=== PATIENT | female | born 1970 | race American Indian/Alaskan Native ===

== ENCOUNTER 2018-03-08 17:28 | Emergency (ER) | payer BC ==
[2018-03-08] MEDS ORDERED: DELTASONE PO ONE (19:22)
[2018-03-08] MEDS ORDERED: MOTRIN PO ONE (19:22)
--- NOTE | 2018-03-08 19:22 | Emergency Department Report ---
Minor Respiratory - HPI Chief Complaint: High BP Stated Complaint: HIGH BP Time Seen by Provider: 03/08/18 19:06 Duration: 1 week Pain Location: Facial Severity: mild (4/10) Minor Respiratory: Yes Rhinorrhea (nasal congestion and sinus pain), Yes Able to Tolerate Fluids, Yes Cough (dry cough), No Sore Throat, No Ear Pain, No Sick Contacts, No Hemoptysis, No Chest Pain, No Shortness of Breath, No Fever Other History: This is a 47-year-old female here report that she has a sinus infection. She says she has really bad allergies and she started having an weakness, head spinning and nausea onset 2 days ago but prior to that a week ago she started having nasal congestion and runny nose. She says she pulled her tooth and it causes her blood pressure to be elevated but her blood pressure is 150/87. She is having pain around her sinuses at 4 out of 10 with facial pressor. Denies any headache. Denies any vomiting or diarrhea. Denies any shortness of breath or chest pain. Positive cough and. She says she took kpsf-scj-cjoelck sinus medication but it's not helping. No alleviating or exacerbating factors. ED Review of Systems ROS: Stated complaint: HIGH BP Other details as noted in HPI Constitutional: denies: chills, fever Eyes: denies: eye pain, eye discharge, vision change ENT: congestion. denies: ear pain, throat pain, dental pain, hearing loss, epistaxis Respiratory: cough. denies: orthopnea, shortness of breath, SOB with exertion, SOB at rest, stridor, wheezing Cardiovascular: denies: chest pain, palpitations, edema, syncope Gastrointestinal: nausea. denies: abdominal pain, vomiting, diarrhea, constipation, hematemesis, hematochezia Genitourinary: denies: urgency, dysuria, frequency, hematuria, discharge Musculoskeletal: denies: back pain, joint swelling, arthralgia, myalgia Skin: denies: rash, lesions, pruritus Neurological: vertigo. denies: headache, weakness, numbness, paresthesias, confusion, abnormal gait ED Past Medical Hx - Past Medical History Previous Medical History?: Yes Hx Hypertension: Yes Hx Psychiatric Treatment: Yes (depression) - Surgical History Past Surgical History?: Yes Additional Surgical History: Hyst - Family History Family history: hypertension - Social History Smoking Status: Never Smoker Substance Use Type: None - Medications Home Medications: Home Medications Medication Instructions Recorded Confirmed Last Taken Type Amoxicillin/K Clav Tab [Augmentin 1 tab PO Q12HR 10 Days #20 tab 03/08/18 Unknown Rx 875 mg] Cetirizine HCl [ZyrTEC] 10 mg PO QDAY 14 Days #14 capsule 03/08/18 Unknown Rx Fluticasone [Flonase] 1 spray NS QDAY 14 Days #1 bottle 03/08/18 Unknown Rx Minor Respiratory Exam - Exam General: Vital signs noted. No distress. Alert and acting appropriately. This is a 47-year-old female well-nourished well-developed in no acute distress. HEENT: Yes Moist Mucous Membranes, Yes Rhinorrhea (nasal congestion, erythema and clear drainage), Yes Frontal Tenderness, Yes Maxillary Tenderness, No Pharyngeal Erythema, No Pharyngeal Exudates, No Conjuctival Injection Ear: Neither TM Bulge (bilateral TM congested), Neither TM Erythema, Neither EAC Pain, Neither EAC Discharge Neck: Yes Supple (no C-spine tenderness, full range of motion), No Adenopathy Lungs: Yes Good Air Exchange (CTAB), No Wheezes, No Ronchi, No Stridor, No Cough , No Labored Respirations, No Retractions Heart: Yes Regular (S1, S2. Regular rate and rhythm) Abdomen: Yes Normal Bowel Sounds (in all quadrants), No Tenderness (nontender to palpate in all quadrants), No Peritoneal Signs Skin: No Rash, No Edema Neurologic: Alert and oriented 3, GCS of 15, speech is clear and fluid. Gait is normal. Normal reflexes and no motor or sensory deficit. Musculoskeletal: Extremities:NO CCE +2 pulses all extremities and no neurovascular compromise ED Course Vital Signs 03/08/18 17:33 Temperature 99.3 F Pulse Rate 78 Respiratory 18 Rate Blood Pressure 150/87 O2 Sat by Pulse 100 Oximetry - Reevaluation(s) Reevaluation #1: 03/08/18 20:17 Patient received prednisone 60 mg by mouth and ibuprofen 800 mg by mouth in emergency room. She says she is feeling better. ED Medical Decision Making - Medical Decision Making ED course This is a 47-year-old female here reporting that she thinks she has a sinus infection and she is here to be treated. I examined patient and she is in stable condition. Pain is better with prednisone 60 mg by mouth. Motrin 800 mg by mouth for pain. I discussed with patient her diagnosis and she voiced understanding. A/P 1: Acute sinusitis-patient given Deltasone 60 mg by mouth and emergency room and was sent home antibiotics and steroids 2: Upper respiratory infection with cough and congestion - patient will be discharged home on Zyrtec and Flonase and instructed on saline nasal wash. 3: Facial pain -resolved with Motrin 800 mg 1 dose and emergency room Prescription for Augmentin, Flonase and Zyrtec. She is educated on diagnosis, medication,and need to follow-up.Referral given for primary care Patient discharged home in stable condition and pain is controlled. Vital signs are stable and is afebrile. Patient to follow-up with primary care physician in 2-3 days. . I also instructed him that if her symptoms worsen to return to the emergency room YONATHAN. She voiced understanding and discharge instruction and discharged home from ED in stable condition Critical care attestation.: If time is entered above; I have spent that time in minutes in the direct care of this critically ill patient, excluding procedure time. ED Disposition Clinical Impression: Upper respiratory infection with cough and congestion Acute sinusitis Qualifiers: Sinusitis location: unspecified location Recurrence: not specified as recurrent Qualified Code(s): J01.90 - Acute sinusitis, unspecified Disposition: DC- TO HOME OR SELFCARE Is pt being admited?: No Does the pt Need Aspirin: No Condition: Stable Instructions: Sinusitis (ED), Upper Respiratory Infection (ED) Additional Instructions: Please increase her fluid intake Flush nostrils with saline nasal spray take antibiotic as prescribed F/U with primary care physician as instructed Prescriptions: Amoxicillin/K Clav Tab [Augmentin 875 mg] 1 tab PO Q12HR 10 Days #20 tab Cetirizine HCl [ZyrTEC] 10 mg PO QDAY 14 Days #14 capsule Fluticasone [Flonase] 1 spray NS QDAY 14 Days #1 bottle Referrals: [facility] [Outside] - 2-3 Days PRIMARY CARE, [Primary Care Provider] - 2-3 Days Forms: Work/School Release Form(ED)
[2018-03-08 20:28] VITALS: BP 156/78
== END 2018-03-08 20:28 | disposition home or self-care (01) ==
LOC: ED 17:28
DX: J06.9 Acute upper respiratory infection, unspecified (principal); R05 Cough; J01.90 Acute sinusitis, unspecified; I10 Essential (primary) hypertension; F32.9 Major depressive disorder, single episode, unspecified
CPT/HCPCS: 99282; J7512

== ENCOUNTER 2019-06-29 08:57 | Observation (INO) | payer BC ==
[2019-06-29] MEDS ORDERED: ASPIRIN 325 MG TAB PO ONE (09:16)
--- NOTE | 2019-06-29 09:48 | XRay Report ---
CHEST 2 VIEWS INDICATION: Chest Pain. COMPARISON: None. FINDINGS: Support devices: None. Heart: Within normal limits. Pulmonary vasculature: Normal. Lungs/pleura: Normally expanded and clear lungs. No pleural effusion. No pneumothorax. Additional findings: None. IMPRESSION: 1. No acute cardiopulmonary process. Signer Name: Javi Russo MD Signed: 06/29/2019 9:44 AM Workstation Name: [id number]
[2019-06-29] MEDS ORDERED: ACETAMINOPHEN 325 MG TAB PO ONE (10:16)
[2019-06-29] MEDS ORDERED: FAMOTIDINE 20 MG TAB PO ONE (10:16)
[2019-06-29] MEDS ORDERED: SUCRALFATE 1 GM/10 ML ORAL LIQD PO ONE (10:16)
--- NOTE | 2019-06-29 10:17 | Emergency Department Report ---
ED Chest Pain HPI - General Chief Complaint: Chest Pain Stated Complaint: CHEST PAIN/NAUSEA/HBP Time Seen by Provider: 06/29/19 09:48 Source: patient, RN notes reviewed Mode of arrival: Ambulatory Limitations: No Limitations - History of Present Illness Initial Comments: During history and physical, I am chaperoned by nurse ALLEN DORMAN this is a 48-year-old female. This patient is not known to this provider previously. Her primary care doctor is in [place]. Her past medical history includes hypertension, GERD, asthma, depression, anxiety. The patient denies DVT, pulmonary ambles risk factors. No recent aspi rin consumption, and also endorses distant history of hysterectomy The patient presents to the ER with a complaint of resolved bilateral anterior quadriceps swelling, resolved bilateral upper extremity swelling, bilateral paracervical reproducible neck pain, chest wall pain. The swelling has been present intermittently over the past 3 days. It is painless and now resolved. She endorses chest wall pain, and simultaneous paracervical neck pain. She denies vomiting. She denies diaphoresis. She endorses chronic shortness of breath, and feels like "I have a sinus infection." Patient also endorses that she believes that she snores at night, and that she feels like sleepers occasionally not restful. She also endorses anxiety. Her chest discomfort has been present for over 24 hours. To me, she indicates it does not radiate anywhere. MD Complaint: chest pain, other -: Gradual, hour(s), days(s) Onset: other Pain Location: other Pain Radiation: other Severity scale (0 -10): 5 Quality: aching Consistency: intermittent Improves With: rest Worsens With: palpation Aspirin use within the Past 7 Days: (0) No - Related Data Previous Rx's Medication Instructions Recorded Last Taken Type Amoxicillin/K Clav Tab [Augmentin 1 tab PO Q12HR 10 Days #20 tab 03/08/18 Unknown Rx 875 mg] Cetirizine HCl [ZyrTEC] 10 mg PO QDAY 14 Days #14 capsule 03/08/18 Unknown Rx Fluticasone [Flonase] 1 spray NS QDAY 14 Days #1 bottle 03/08/18 Unknown Rx Acetaminophen [Tylenol] 325 mg PO Q4HR PRN #30 capsule 06/29/19 Unknown Rx Aspirin [Adult Aspirin] 81 mg PO QDAY #30 tablet. 06/29/19 Unknown Rx Famotidine [Pepcid] 20 mg PO BID #60 tablet 06/29/19 Unknown Rx Ondansetron [Zofran Odt] 4 mg PO Q8HR PRN #20 tab.rapdis 06/29/19 Unknown Rx Allergies Allergy/AdvReac Type Severity Reaction Status Date / Time No Known Allergies Allergy Verified 06/29/19 10:08 Heart Score - HEART Score History: Moderately suspicious EKG: Non-specific Age: 45-65 Risk factors: 1-2 risk factors Troponin: < normal limit HEART Score: 4 - Critical Actions Critical Actions: 0-3 pts:0.9-1.7%risk of adverse cardiac event.Candidate for discharge ED Review of Systems ROS: Stated complaint: CHEST PAIN/NAUSEA/HBP Other details as noted in HPI Constitutional: malaise. denies: fever Eyes: denies: eye discharge ENT: congestion Respiratory: shortness of breath Cardiovascular: chest pain Gastrointestinal: denies: vomiting Genitourinary: denies: dysuria Musculoskeletal: arthralgia, myalgia Skin: denies: lesions Neurological: weakness Psychiatric: anxiety ED Past Medical Hx - Past Medical History Previous Medical History?: Yes Hx Hypertension: Yes Hx Psychiatric Treatment: Yes (depression) - Surgical History Past Surgical History?: Yes Additional Surgical History: Hysterectomy - Social History Smoking Status: Never Smoker - Medications Home Medications: Home Medications Medication Instructions Recorded Confirmed Last Taken Type Amoxicillin/K Clav Tab [Augmentin 1 tab PO Q12HR 10 Days #20 tab 03/08/18 Unknown Rx 875 mg] Cetirizine HCl [ZyrTEC] 10 mg PO QDAY 14 Days #14 capsule 03/08/18 Unknown Rx Fluticasone [Flonase] 1 spray NS QDAY 14 Days #1 bottle 03/08/18 Unknown Rx Acetaminophen [Tylenol] 325 mg PO Q4HR PRN #30 capsule 06/29/19 Unknown Rx Aspirin [Adult Aspirin] 81 mg PO QDAY #30 tablet. 06/29/19 Unknown Rx Famotidine [Pepcid] 20 mg PO BID #60 tablet 06/29/19 Unknown Rx Ondansetron [Zofran Odt] 4 mg PO Q8HR PRN #20 tab.rapdis 06/29/19 Unknown Rx ED Physical Exam - General Limitations: No Limitations General appearance: alert, in no apparent distress - Head Head exam: Present: atraumatic, normocephalic - Eye Eye exam: Present: normal appearance, EOMI. Absent: nystagmus - ENT ENT exam: Present: normal exam, normal orophraynx, mucous membranes moist, normal external ear exam - Neck Neck exam: Present: normal inspection, tenderness (reproducible paracervical neck pain. There is no midline spinal tenderness), full ROM - Respiratory Respiratory exam: Present: normal lung sounds bilaterally, chest wall tenderness. Absent: respiratory distress - Cardiovascular Cardiovascular Exam: Present: regular rate, normal rhythm, normal heart sounds. Absent: bradycardia, tachycardia, irregular rhythm, systolic murmur, diastolic murmur, rubs, gallop - GI/Abdominal GI/Abdominal exam: Present: soft, normal bowel sounds. Absent: distended, tenderness, guarding, rebound, rigid, pulsatile mass - Extremities Exam Extremities exam: Present: normal inspection (chaperoned by ALLEN DORMAN), full ROM, other (2+ pulses noted in the bilateral upper, lower extremities. There is no long bone tenderness. Musculoskeletal compartments are soft. The pelvis is stable.). Absent: pedal edema, joint swelling, calf tenderness - Back Exam Back exam: Present: normal inspection, full ROM, paraspinal tenderness. Absent: CVA tenderness (R), muscle spasm, rash noted - Neurological Exam Neurological exam: Present: alert, other (there is no facial droop. The tongue is midline. Extraocular movements are intact bilaterally. Patient speaking in full complete sentences. Shoulder shrug is intact bilaterally. Hearing is grossly intact bilaterally. Visual acuity intact to finger counting and color p erception at a close distance. 5/5 strength 4 extremities. Sensation intact to light touch in 4 extremities.) - Psychiatric Psychiatric exam: Present: anxious - Skin Skin exam: Present: warm, dry, intact, normal color. Absent: rash ED Course Vital Signs 06/29/19 06/29/19 06/29/19 09:01 09:51 09:52 Temperature 98.3 F 98.4 F Pulse Rate 61 189 H 63 Respiratory 20 16 21 Rate Blood Pressure 161/92 Blood Pressure 174/93 [Right] O2 Sat by Pulse 100 100 99 Oximetry 06/29/19 06/29/19 06/29/19 10:00 10:16 10:30 Temperature Pulse Rate 62 60 Respiratory 15 17 16 Rate Blood Pressure Blood Pressure [Right] O2 Sat by Pulse 99 100 100 Oximetry 06/29/19 06/29/19 06/29/19 10:46 11:00 11:16 Temperature Pulse Rate 65 61 Respiratory 14 15 18 Rate Blood Pressure Blood Pressure [Right] O2 Sat by Pulse 100 100 99 Oximetry 06/29/19 11:56 Temperature Pulse Rate 64 Respiratory 13 Rate Blood Pressure Blood Pressure 149/94 [Right] O2 Sat by Pulse Oximetry - Reevaluation(s) Reevaluation #1: 06/29/19 11:24 Differential diagnosis, including but not limited to: Renal insufficiency, hepatic insufficiency, dependent edema, febrile myalgia, musculoskeletal pain, GERD, gastritis, costochondritis, acute coronary syndrome Assessment and plan: 48-year-old female with multiple complaints, including resolved swelling on upper and lower extremities, paraspinal reproducible neck pain, and chest pain. Abnormal EKG reviewed and appreciated, however, given history and total data analysis, patient appears to be low risk by the heart score for major adverse cardiac event. She is not tachycardic, she is not hypoxic, she is not tachypneic, she is low risk by well's criteria for pulmonary embolism. Her exam is not consistent with cellulitis, or compartment syndrome. She appears to be quite comfortable at this time. Plan is to treat symptoms, obtain EKG 2, troponin 2. This hospital and institution has a protocol in place whereby patients who are at low risk for major adverse cardiac event may obtain expedited outpatient cardiology follow-up to complete her cardiac risk stratification. Patient may also have obstructive sleep apnea, she'll need to follow-up with a chief underwriter or sleep specialist for this. Laboratory studies at this point in time not consistent with renal insufficiency, hepatic insufficiency, or myositis. Reevaluation #2: 06/29/19 12:06 Change in plans. Repeat EKG subtly different when compared to prior. No active chest pain at this time, however, patient endorsed to myself and nursing tenet while walking, she had substernal chest discomfort. Therefore, heart score changes, she is now moderate risk for major adverse cardiac event, we'll recommend admission to the hospital for cardiac recertification. Discussed this with patient who verbalizes understanding, and is amenable to hospitalization. Reevaluation #3: 06/29/19 12:24 Discussed with Hospital physician, Dr. Stephanie Isidro, who accepts to his service for acs risk stratification RENNY score - Renny Score Age > 65: (0) No Aspirin use within the Past 7 Days: (0) No 3 or more CAD Risk Factors: (0) No 2 or more Angina events in past 24 hrs: (0) No Known CAD with more than 50% Stenosis: (0) No Elevated Cardiac Markers: (0) No ST Deviation Greater than 0.5mm: (0) No RENNY Score: 0 ED Medical Decision Making - Lab Data Result diagrams: 06/29/19 09:52 06/29/19 09:52 Vital Signs 06/29/19 06/29/19 06/29/19 09:01 09:51 09:52 Temperature 98.3 F 98.4 F Pulse Rate 61 189 H 63 Respiratory 20 16 21 Rate Blood Pressure 161/92 Blood Pressure 174/93 [Right] O2 Sat by Pulse 100 100 99 Oximetry 06/29/19 06/29/19 06/29/19 10:00 10:16 10:30 Temperature Pulse Rate 62 60 Respiratory 15 17 16 Rate Blood Pressure Blood Pressure [Right] O2 Sat by Pulse 99 100 100 Oximetry Lab Results 06/29/19 06/29/19 06/29/19 Range/Units 09:52 09:52 09:52 WBC 5.3 (4.5-11.0) K/mm3 RBC 4.56 (3.65-5.03) M/mm3 Hgb 12.8 (10.1-14.3) gm/dl Hct 38.6 (30.3-42.9) % MCV 85 (79-97) fl MCH 28 (28-32) pg MCHC 33 (30-34) % RDW 15.8 H (13.2-15.2) % Plt Count 243 (140-440) K/mm3 Lynn % (Auto) [employer]umber Car[employer] Operator Sodium 142 (137-145) mmol/L Potassium 3.3 L (3.6-5.0) mmol/L Chloride 99.7 (98-107) mmol/L Carbon Dioxide 24 (22-30) mmol/L Anion Gap 22 mmol/L BUN 11 (7-17) mg/dL Creatinine 0.6 L (0.7-1.2) mg/dL Estimated GFR > 60 ml/min BUN/Creatinine Ratio 18 % Glucose 116 H (65-100) mg/dL Calcium 8.7 (8.4-10.2) mg/dL Magnesium 1.80 (1.7-2.3) mg/dL Total Bilirubin < 0.20 (0.1-1.2) mg/dL Direct Bilirubin < 0.2 (0-0.2) mg/dL Indirect Bilirubin 0.0 mg/dL AST 20 (5-40) units/L ALT 15 (7-56) units/L Alkaline Phosphatase 107 (35-129) units/L Total Creatine Kinase 300 H (30-135) units/L Troponin T < 0.010 (0.00-0.029) ng/mL Total Protein 7.5 (6.3-8.2) g/dL Albumin 4.3 (3.9-5) g/dL Albumin/Globulin Ratio 1.3 % - EKG Data -: EKG Interpreted by Ct EKG shows normal: sinus rhythm Rate: normal - EKG Data When compared to previous EKG there are: previous EKG unavailable 06/29/19 11:26 There is no prior EKG available for comparison. This is a sinus rhythm, 62 bpm, QTC 469 ms, poor R wave progression, there is low voltage, the EKG is abnormal, the EKG is unchanged from prior, the EKG is not consistent with ST elevation myocardial infarction. - Radiology Data Radiology results: report reviewed, image reviewed Referring Physician: ED DOC Patient Name: JESSICA VELÁZQUEZ Date of : 1970 Sex: Female Report Date: 2019-06-29 Report Status: Finalized Findings [facility] [address] [place] [address] XRay Report Signed Patient: JESSICA VELÁZQUEZ MR#: [id number] [birth year] : 1970 Acct:[id number] Age/Sex: 48 / F ADM Date: 06/29/19 Loc: ED Attending Dr: Ordering Physician: ROBE JI MD Date of Service: 06/29/19 Procedure(s): XR chest routine 2V Accession Number(s): [id number] cc: ROBE JI MD Fluoro Time In Minutes: CHEST 2 VIEWS INDICATION: Chest Pain. COMPARISON: None. FINDINGS: Support devices: None. Heart: Within normal limits. Pulmonary vasculature: Normal. Lungs/pleura: Normally expanded and clear lungs. No pleural effusion. No pneumothorax. Additional findings: None. IMPRESSION: 1. No acute cardiopulmonary process. Signer Name: Sahara Becker MD Signed: 06/29/2019 9:44 AM Workstation Name: [id number] Transcribed By: REF Dictated By: SAHARA BECKER MD Electronically Authenticated By: SAHARA BECKER MD Signed Date/Time: 06/29/19 0917 Critical care attestation.: If time is entered above; I have spent that time in minutes in the direct care of this critically ill patient, excluding procedure time. ED Disposition Clinical Impression: Acute chest pain, Abnormal EKG Disposition: OP ADMIT IP TO THIS HOSP Is pt being admited?: Yes Does the pt Need Aspirin: Yes Condition: Stable Instructions: Chest Pain (ED) Additional Instructions: Take the prescribed medications as needed and directed. Recommend follow-up with a planer tailer within the next 2-3 days. Please contact any of the listed cardiology practices, and state that he was seen here in this emergency room for chest pain symptoms, and they should be able to accommodate the patient with a close outpatient appointment for probable stress test and/or cardiology evaluation. Recommend weight loss, physical activities as tolerated, modification of diet to avoid consumption of carbohydrates and sugars, and patient should consume plenty of fiber, vegetables, and lean protein. Recommend follow-up with an outpatient sleep specialist, such as Dr. Portillo, to evaluate for possible sleep apnea. Return to the emergency room right away with new, worsened or different symptoms not present on the initial emergency room e valuation. For the time being, avoid consumption of Motrin, ibuprofen, Naprosyn, Aleve, alcohol, heavy and spicy foods. Prescriptions: Aspirin [Adult Aspirin] 81 mg PO QDAY #30 tablet. Famotidine [Pepcid] 20 mg PO BID #60 tablet Acetaminophen [Tylenol] 325 mg PO Q4HR PRN #30 capsule PRN Reason: Pain , Severe (7-10) Ondansetron [Zofran Odt] 4 mg PO Q8HR PRN #20 tab.rapdis PRN Reason: Nausea Referrals: [facility] [Provider Group] - 3-5 Days [facility] [Provider Group] - 3-5 Days JUAN LUIS PORTILLO MD [Staff Physician] - 3-5 Days
[2019-06-29 10:43] LABS: Hematocrit 38.6 % (30.3-42.9); Hemoglobin 12.8 gm/dl (10.1-14.3); Mean Corpuscular HGB Conc 33 % (30-34); Mean Corpuscular Volume 85 fl (79-97); Platelet Count 243 K/mm3 (140-440); Red Blood Count 4.56 M/mm3 (3.65-5.03); Red Cell Distribution Width 15.8 % (13.2-15.2)
[2019-06-29 10:46] LABS: BUN/Creatinine Ratio 18; Blood Urea Nitrogen 11 mg/dL (7-17); Calcium 8.7 mg/dL (8.4-10.2); Hemolysis Index 24
[2019-06-29] MEDS ORDERED: POTASSIUM CHLORIDE ER 20 MEQ TAB PO ONE ×2 (10:47→18:02)
[2019-06-29 11:02] LABS: Alanine Aminotransferase 15 units/L (7-56); Albumin 4.3 g/dL (3.9-5)
[2019-06-29 11:14] LABS: Bilirubin,Direct < 0.2 mg/dL (0-0.2)
[2019-06-29] MEDS ORDERED: ONDANSETRON 2 MG/2.5 ML ORAL LIQD PO ONE (11:16)
[2019-06-29] MEDS ORDERED: ASPIRIN 81 MG TAB CHEW PO ONE (12:08)
[2019-06-29 12:53] LABS: Total Cells Counted 100
[2019-06-29 12:54] LABS: Hypochromasia Few
[2019-06-29 12:55] LABS: Anisocytosis Few; Ovalocytes Rare; Platelet Estimate Consistent w Auto
[2019-06-29] MEDS ORDERED: ASPIRIN 325 MG TAB ONE (13:19)
[2019-06-29] MEDS ORDERED: ASPIRIN 81 MG TAB CHEW ONE (13:24)
--- NOTE | 2019-06-29 14:44 | History and Physical Report ---
History of Present Illness Date of examination: 06/29/19 Date of admission: 06/29/19 12:24 Chief complaint: Chest pain for 3 days --intermittent in nature History of present illness: 48-year-old -[place] female with history of gastroesophageal reflux disease comes in for retrosternal chest pain for last 2-3 days. Chest pain is intermittent in nature, radiating to the back. Associated with nausea for last 3 days. No vomiting.. Chest pain is about 5 on a scale of 1-10. No diaphoresis. No exacerbating or relieving factors. No shortness of breath. P atient also complains of neck pain. Chronic shortness of breath secondary to her obesity. No fever or chills. Past Medical History Previous Medical History?: Yes Hypertension: Yes Psychiatric Treatment: Yes (depression) JOELLE Surgical History Past Surgical History?: Yes Additional Surgical History: Hysterectomy Social History Smoking Status: Never Smoker Family history Htn Medications Home Medications: Home Medications Medication Instructions Recorded Confirmed Last Taken Type Amoxicillin/K Clav Tab [Augmentin 1 tab PO Q12HR 10 Days #20 tab 03/08/18 Unknown Rx 875 mg] Cetirizine HCl [ZyrTEC] 10 mg PO QDAY 14 Days #14 capsule 03/08/18 Unknown Rx Fluticasone [Flonase] 1 spray NS QDAY 14 Days #1 bottle 03/08/18 Unknown Rx Acetaminophen [Tylenol] 325 mg PO Q4HR PRN #30 capsule 06/29/19 Unknown Rx Aspirin [Adult Aspirin] 81 mg PO QDAY #30 tablet.dr 06/29/19 Unknown Rx Famotidine [Pepcid] 20 mg PO BID #60 tablet 06/29/19 Unknown Rx Ondansetron [Zofran Odt] 4 mg PO Q8HR PRN #20 tab.rapdis 06/29/19 Unknown Rx Review of Systems ROS: Stated complaint: CHEST PAIN/NAUSEA/HBP Other details as noted in HPI Constitutional: malaise. denies: fever Eyes: denies: eye discharge ENT: congestion Respiratory: shortness of breath Cardiovascular: chest pain Gastrointestinal: denies: vomiting Genitourinary: denies: dysuria Musculoskeletal: arthralgia, myalgia Skin: denies: lesions Neurological: weakness Psychiatric: anxiety Medications and Allergies Allergies Allergy/AdvReac Type Severity Reaction Status Date / Time No Known Allergies Allergy Verified 06/29/19 10:08 Home Medications Medication Instructions Recorded Confirmed Last Taken Type Acetaminophen [Tylenol] 325 mg PO Q4HR PRN #30 capsule 06/29/19 Unknown Rx Amlodipine Besylate/Benazepril 1 each PO QDAY 06/29/19 06/29/19 Unknown History [Amlodipine-Benazepril 10-40 mg] Aspirin [Adult Aspirin] 81 mg PO QDAY #30 tablet.dr 06/29/19 Unknown Rx Famotidine [Pepcid] 20 mg PO BID #60 tablet 06/29/19 Unknown Rx Gabapentin [Neurontin] 300 mg PO TID 06/29/19 06/29/19 Unknown History Meloxicam [Mobic] 15 mg PO QDAY 06/29/19 06/29/19 Unknown History Omeprazole 40 mg PO Q12H 06/29/19 06/29/19 Unknown History Ondansetron [Zofran Odt] 4 mg PO Q8HR PRN #20 tab.rapdis 06/29/19 Unknown Rx PARoxetine HCl [PARoxetine] 40 mg PO QDAY 06/29/19 06/29/19 Unknown History busPIRone [Buspar] 10 mg PO Q12H 06/29/19 06/29/19 Unknown History tiZANidine [Zanaflex 4mg TAB] 4 mg PO Q6H PRN 06/29/19 06/29/19 Unknown History valACYclovir [Valtrex] 500 mg PO QDAY 06/29/19 06/29/19 Unknown History Exam - Constitutional Vitals: Temp Pulse Resp BP Pulse Ox 98.4 F 61 16 167/89 99 06/29/19 09:52 06/29/19 13:16 06/29/19 13:16 06/29/19 13:16 06/29/19 11:16 General appearance: Present: no acute distress, well-nourished - EENT Eyes: Present: PERRL ENT: hearing intact, clear oral mucosa - Neck Neck: Present: supple, normal ROM - Respiratory Respiratory effort: normal Respiratory: bilateral: CTA - Cardiovascular Heart Sounds: Present: S1 & S2. Absent: rub, click - Extremities Extremities: pulses symmetrical, No edema Peripheral Pulses: within normal limits - Abdominal General gastrointestinal: Present: soft, non-tender, non-distended, normal bowel sounds Female genitourinary: Present: normal - Integumentary Integumentary: Present: clear, warm, dry - Musculoskeletal Musculoskeletal: gait normal, strength equal bilaterally - Psychiatric Psychiatric: appropriate mood/affect, intact judgment & insight - Neurologic Neurologic: CNII-XII intact, moves all extremities Results - Labs CBC & Chem 7: 06/29/19 09:52 06/29/19 09:52 Labs: Laboratory Last Values WBC 5.3 K/mm3 (4.5-11.0) 06/29/19 09:52 RBC 4.56 M/mm3 (3.65-5.03) 06/29/19 09:52 Hgb 12.8 gm/dl (10.1-14.3) 06/29/19 09:52 Hct 38.6 % (30.3-42.9) 06/29/19 09:52 MCV 85 fl (79-97) 06/29/19 09:52 MCH 28 pg (28-32) 06/29/19 09:52 MCHC 33 % (30-34) 06/29/19 09:52 RDW 15.8 % (13.2-15.2) H 06/29/19 09:52 Plt Count 243 K/mm3 (140-440) 06/29/19 09:52 [place] % (Auto) Photo Finish Photographer 06/29/19 09:52 Add Manual Diff Complete 06/29/19 09:52 Total Counted 100 06/29/19 09:52 Seg Neuts % (Manual) 46.0 % (40.0-70.0) 06/29/19 09:52 Band Neutrophils % 0 % 06/29/19 09:52 Lymphocytes % (Manual) 39.0 % (13.4-35.0) H 06/29/19 09:52 Reactive Lymphs % (Man) 0 % 06/29/19 09:52 Monocytes % (Manual) 12.0 % (0.0-7.3) H 06/29/19 09:52 Eosinophils % (Manual) 2.0 % (0.0-4.3) 06/29/19 09:52 Basophils % (Manual) 1.0 % (0.0-1.8) 06/29/19 09:52 Metamyelocytes % 0 % 06/29/19 09:52 Myelocytes % 0 % 06/29/19 09:52 Promyelocytes % 0 % 06/29/19 09:52 Blast Cells % 0 % 06/29/19 09:52 Nucleated RBC % Not Reportable 06/29/19 09:52 Seg Neutrophils # Man 2.4 K/mm3 (1.8-7.7) 06/29/19 09:52 Band Neutrophils # 0.0 K/mm3 06/29/19 09:52 Lymphocytes # (Manual) 2.1 K/mm3 (1.2-5.4) 06/29/19 09:52 Abs React Lymphs (Man) 0.0 K/mm3 06/29/19 09:52 Monocytes # (Manual) 0.6 K/mm3 (0.0-0.8) 06/29/19 09:52 Eosinophils # (Manual) 0.1 K/mm3 (0.0-0.4) 06/29/19 09:52 Basophils # (Manual) 0.1 K/mm3 (0.0-0.1) 06/29/19 09:52 Metamyelocytes # 0.0 K/mm3 06/29/19 09:52 Myelocytes # 0.0 K/mm3 06/29/19 09:52 Promyelocytes # 0.0 K/mm3 06/29/19 09:52 Blast Cells # 0.0 K/mm3 06/29/19 09:52 WBC Morphology Not Reportable 06/29/19 09:52 Hypersegmented Neuts Not Reportable 06/29/19 09:52 Hyposegmented Neuts Not Reportable 06/29/19 09:52 Hypogranular Neuts Not Reportable 06/29/19 09:52 Smudge Cells Not Reportable 06/29/19 09:52 Toxic Granulation Not Reportable 06/29/19 09:52 Toxic Vacuolation Not Reportable 06/29/19 09:52 Dohle Bodies Not Reportable 06/29/19 09:52 Pelger-Huet Anomaly Not Reportable 06/29/19 09:52 Dorita Rods Not Reportable 06/29/19 09:52 Platelet Estimate Consistent w auto 06/29/19 09:52 Clumped Platelets Not Reportable 06/29/19 09:52 Plt Clumps, EDTA Not Reportable 06/29/19 09:52 Large Platelets Not Reportable 06/29/19 09:52 Giant Platelets Not Reportable 06/29/19 09:52 Platelet Satelliting Not Reportable 06/29/19 09:52 Plt Morphology Comment Not Reportable 06/29/19 09:52 RBC Morphology Not Reportable 06/29/19 09:52 Dimorphic RBCs Not Reportable 06/29/19 09:52 Polychromasia Not Reportable 06/29/19 09:52 Hypochromasia Few 06/29/19 09:52 Poikilocytosis Not Reportable 06/29/19 09:52 Anisocytosis Few 06/29/19 09:52 Microcytosis Not Reportable 06/29/19 09:52 Macrocytosis Not Reportable 06/29/19 09:52 Spherocytes Not Reportable 06/29/19 09:52 Pappenheimer Bodies Not Reportable 06/29/19 09:52 Sickle Cells Not Reportable 06/29/19 09:52 Target Cells Not Reportable 06/29/19 09:52 Tear Drop Cells Not Reportable 06/29/19 09:52 Ovalocytes Rare 06/29/19 09:52 Helmet Cells Not Reportable 06/29/19 09:52 [place] Bodies Not Reportable 06/29/19 09:52 Anza Rings Not Reportable 06/29/19 09:52 Claudia Cells Not Reportable 06/29/19 09:52 Bite Cells Not Reportable 06/29/19 09:52 Crenated Cell Not Reportable 06/29/19 09:52 Elliptocytes Not Reportable 06/29/19 09:52 Acanthocytes (Spur) Not Reportable 06/29/19 09:52 Rouleaux Not Reportable 06/29/19 09:52 Hemoglobin C Crystals Not Reportable 06/29/19 09:52 Schistocytes Not Reportable 06/29/19 09:52 Malaria parasites Not Reportable 06/29/19 09:52 [place] Bodies Not Reportable 06/29/19 09:52 Hem Pathologist Commnt No 06/29/19 09:52 Sodium 142 mmol/L (137-145) 06/29/19 09:52 Potassium 3.3 mmol/L (3.6-5.0) L 06/29/19 09:52 Chloride 99.7 mmol/L (98-107) 06/29/19 09:52 Carbon Dioxide 24 mmol/L (22-30) 06/29/19 09:52 Anion Gap 22 mmol/L 06/29/19 09:52 BUN 11 mg/dL (7-17) 06/29/19 09:52 Creatinine 0.6 mg/dL (0.7-1.2) L 06/29/19 09:52 Estimated GFR > 60 ml/min 06/29/19 09:52 BUN/Creatinine Ratio 18 % 06/29/19 09:52 Glucose 116 mg/dL (65-100) H 06/29/19 09:52 Calcium 8.7 mg/dL (8.4-10.2) 06/29/19 09:52 Magnesium 1.80 mg/dL (1.7-2.3) 06/29/19 09:52 Total Bilirubin < 0.20 mg/dL (0.1-1.2) 06/29/19 09:52 Direct Bilirubin < 0.2 mg/dL (0-0.2) 06/29/19 09:52 Indirect Bilirubin 0.0 mg/dL 06/29/19 09:52 AST 20 units/L (5-40) 06/29/19 09:52 ALT 15 units/L (7-56) 06/29/19 09:52 Alkaline Phosphatase 107 units/L (35-129) 06/29/19 09:52 Total Creatine Kinase 300 units/L (30-135) H 06/29/19 09:52 Troponin T < 0.010 ng/mL (0.00-0.029) 06/29/19 09:52 Total Protein 7.5 g/dL (6.3-8.2) 06/29/19 09:52 Albumin 4.3 g/dL (3.9-5) 06/29/19 09:52 Albumin/Globulin Ratio 1.3 % 06/29/19 09:52 Short CBC 06/29/19 Range/Units 09:52 WBC 5.3 (4.5-11.0) K/mm3 Hgb 12.8 (10.1-14.3) gm/dl Hct 38.6 (30.3-42.9) % Plt Count 243 (140-440) K/mm3 BMP 06/29/19 09:52 Sodium 142 Potassium 3.3 L Chloride 99.7 Carbon Dioxide 24 BUN 11 Creatinine 0.6 L Glucose 116 H Calcium 8.7 Cardiac Enzymes 06/29/19 06/29/19 Range/Units 09:52 09:52 Total Creatine Kinase 300 H (30-135) units/L Troponin T < 0.010 (0.00-0.029) ng/mL Liver Function 06/29/19 Range/Units 09:52 Total Bilirubin < 0.20 (0.1-1.2) mg/dL Direct Bilirubin < 0.2 (0-0.2) mg/dL AST 20 (5-40) units/L ALT 15 (7-56) units/L Alkaline Phosphatase 107 (35-129) units/L Albumin 4.3 (3.9-5) g/dL - Imaging and Cardiology EKG: report reviewed (sinus rhythm heart rate of 62/m old anteroseptal infarct nonspecific T-wave abnormalities.) Chest x-ray: report reviewed (no acute findings) Assessment and Plan Advance Directives: Yes (full code) VTE prophylaxis?: Chemical Plan of care discussed with patient/family: Yes - Patient Problems (1) Acute chest pain Current Visit: Yes Status: Acute Plan to address problem: Chest pain rule out DC protocol Serial troponins Lexiscan in the morning Cardiology consult requested (2) Hypertension Current Visit: Yes Status: Chronic Qualifiers: Hypertension type: essential hypertension Qualified Code(s): I10 - Essential (primary) hypertension Plan to address problem: Continue antihypertensives. (3) DVT prophylaxis Current Visit: Yes Status: Acute Plan to address problem: On Lovenox and GI prophylaxis (4) Generalized anxiety disorder Current Visit: Yes Status: Chronic Plan to address problem: Continue BuSpar q12h (5) Depression Current Visit: Yes Status: Chronic Qualifiers: Depression Type: unspecified Qualified Code(s): F32.9 - Major depressive disorder, single episode, unspecified Plan to address problem: Continue paroxetine 40 mg once a day (6) GERD (gastroesophageal reflux disease) Current Visit: Yes Status: Acute Qualifiers: Esophagitis presence: with esophagitis Qualified Code(s): K21.0 - Gastro- esophageal reflux disease with esophagitis Plan to address problem: Continue PPIs Meloxicam kept on hold which may be causing the esophagitis and reflux (7) Hypokalemia Current Visit: Yes Status: Acute Plan to address problem: Potassium supplement given (8) Peripheral neuropathy Current Visit: Yes Status: Chronic Qualifiers: Peripheral neuropathy type: polyneuropathy, unspecified Qualified Code(s): G62.9 - Polyneuropathy, unspecified Plan to address problem: Continue gabapentin 300 mg 3 times a day (9) DVT prophylaxis Current Visit: Yes Status: Acute Plan to address problem: On Lovenox and GI prophylaxis
[2019-06-29] MEDS ORDERED: tiZANidine TAB 4 MG TAB PO PRN (17:05)
[2019-06-29] MEDS ORDERED: oxyCODONE /ACETAMINOPHEN 5-325MG TAB PO PRN (17:07)
[2019-06-29] MEDS ORDERED: ONDANSETRON 4 MG/2 ML INJ IV PRN (17:07)
[2019-06-29] MEDS ORDERED: ACETAMINOPHEN 325 MG TAB PO PRN (17:07)
[2019-06-29] MEDS ORDERED: HYDROmorphone 1 MG/1 ML INJ IV PRN (17:07)
[2019-06-29] MEDS ORDERED: NON-FORMULARY EACH (Amlodipine Besylate/Benazepril [Amlodipine-Benazepril 10-40 Mg] 1 EACH PO SCH (17:15)
[2019-06-29] MEDS ORDERED: PAROXETINE HCL 40 MG PO SCH (17:15)
[2019-06-29] MEDS ORDERED: NON-FORMULARY EACH (Omeprazole [Omeprazole] 40 MG) PO SCH (17:15)
[2019-06-29] MEDS ORDERED: PANTOPRAZOLE 40 MG TAB PO SCH (17:30)
[2019-06-29] MEDS: PARoxetine 20 MG TAB PO SCH (18:57)
[2019-06-29] MEDS: PANTOPRAZOLE 40 MG TAB PO SCH (18:58)
[2019-06-29] MEDS: LISINOPRIL 40 MG TAB PO SCH (18:58)
[2019-06-29] MEDS: amLODIPine 10 MG TAB PO SCH (18:59)
[2019-06-29] MEDS: busPIRone 10 MG TAB PO SCH (19:04)
[2019-06-29] MEDS: GABAPENTIN 300 MG CAP PO SCH (21:14)
[2019-06-29] MEDS ORDERED: ENOXAPARIN 40 MG/0.4 ML INJ SUB-Q SCH (22:00)
[2019-06-30 05:19] LABS: BUN/Creatinine Ratio 14; Blood Urea Nitrogen 13 mg/dL (7-17); Calcium 8.3 mg/dL (8.4-10.2); Hemolysis Index 9
[2019-06-30] MEDS: busPIRone 10 MG TAB PO SCH ×2 (06:24→11:17)
[2019-06-30] MEDS: PANTOPRAZOLE 40 MG TAB PO SCH (06:33)
[2019-06-30] MEDS ORDERED: REGADENOSON 0.4 MG/5 ML INJ IV ONE (06:52)
[2019-06-30 11:05] VITALS: BP 155/85
[2019-06-30] MEDS: LISINOPRIL 40 MG TAB PO SCH (11:18)
[2019-06-30] MEDS: GABAPENTIN 300 MG CAP PO SCH (11:20)
[2019-06-30] MEDS: PARoxetine 20 MG TAB PO SCH (11:20)
[2019-06-30] MEDS: amLODIPine 10 MG TAB PO SCH (11:20)
--- NOTE | 2019-06-30 13:23 | Discharge Summary ---
Providers - Providers Date of Admission: 06/29/19 12:24 Date of discharge: 06/30/19 Attending physician: LACHELLE HONEYCUTT 5 Primary care physician: SAVINGS TELLER Hospitalization Reason for admission: CP Condition: Stable Pertinent studies: Nuclear medicine MPI stress test Hospital course: 1-year-old female with history of hypertension depression, anxiety and GERD seen in the emergency room for recurrent substernal chest pain for the past 1-2 days and admitted for further evaluation of the chest..n. Negative for NV EKG unremarkable. Patient underwent nuclear medicine stress test this morning which was reported by cardiology as normal. Potassium was repleted blood pressure is fair patient is medically stable for discharge Disposition: - TO HOME OR SELFCARE Time spent for discharge: 34 min Core Measure Documentation - Palliative Care Palliative Care/ Comfort Measures: Not Applicable - Core Measures Any of the following diagnoses?: none Exam - Constitutional Vitals: Temp Pulse Resp BP Pulse Ox 98.1 F 90 18 155/85 98 06/30/19 11:02 06/30/19 13:07 06/30/19 13:07 06/30/19 11:20 06/30/19 13:07 General appearance: Present: no acute distress, obese - EENT Eyes: Present: PERRL, EOM intact ENT: hearing intact, clear oral mucosa - Neck Neck: Present: supple, normal ROM - Respiratory Respiratory effort: normal - Cardiovascular Rhythm: regular Heart Sounds: Present: S1 & S2 - Extremities Extremities: No edema - Abdominal General gastrointestinal: Present: soft, non-tender Female genitourinary: Present: deferred - Rectal Rectal Exam: deferred - Integumentary Integumentary: Present: clear, warm - Musculoskeletal Musculoskeletal: strength equal bilaterally - Psychiatric Psychiatric: appropriate mood/affect - Neurologic Neurologic: no focal deficits Plan Activity: no restrictions, advance as tolerated Weight Bearing Status: Full Weight Bearing Diet: regular, low fat, low cholesterol, low salt Follow up with: [facility] [Provider Group] - 3-5 Days JUAN LUIS PORTILLO MD [Staff Physician] - 3-5 Days Prescriptions: Aspirin [Adult Aspirin] 81 mg PO QDAY #30 tablet. Famotidine [Pepcid] 20 mg PO BID #60 tablet Acetaminophen [Tylenol] 325 mg PO Q4HR PRN #30 capsule PRN Reason: Pain , Severe (7-10) Ondansetron [Zofran Odt] 4 mg PO Q8HR PRN #20 tab.rapdis PRN Reason: Nausea
--- NOTE | 2019-07-01 03:32 | Treadmill Report ---
NUCLEAR STRESS TEST REFERRING PHYSICIAN: Arlen Isidro M.D. PROTOCOL: The patient was brought to the stress lab in a postoperative state, given 10 mCi of technetium 99m at rest. The patient underwent rest imaging. The patient underwent Lexiscan stress test per standard protocol. At peak stress, the patient was given 26 mCi of technetium 99m. Shortly thereafter, the patient underwent stress imaging. Raw imaging reveals significant GI artifact, no significant motion artifact. SPECT imaging examined carefully in horizontal long axis, vertical long axis, short axis views. Technically difficult study due to GI artifact, but probably grossly normal without evidence of significant degree of ischemia or prior infarction. Normal left ventricular systolic performance, calculated ejection fraction 69%, no TID. CONCLUSIONS: 1. Technically difficult, but grossly probably normal without evidence of significant degree of prior infarction or ischemia. 2. Normal left ventricular systolic performance without evidence of transient ischemic dilatation or stress-induced segmental wall motion abnormalities. JOB# [id number] MELONY/NED
== END 2019-06-30 17:02 | disposition home or self-care (01) ==
LOC: ED 08:57 → 4A 12:24
PROVIDERS: ADMIT Internal Medicine; ATTEND Internal Medicine
DX: R07.89 Other chest pain (principal); I10 Essential (primary) hypertension; R94.31 Abnormal electrocardiogram [ECG] [EKG]; F41.9 Anxiety disorder, unspecified; F32.9 Major depressive disorder, single episode, unspecified; K21.9 Gastro-esophageal reflux disease without esophagitis; E87.6 Hypokalemia; G62.9 Polyneuropathy, unspecified; Z90.710 Acquired absence of both cervix and uterus; Z79.82 Long term (current) use of aspirin
CPT/HCPCS: 36415; 71046; 78452; 80048; 80076; 82550; 83036; 83735; 84484; 85007; 85025; 93005; 93010; 93017; 96372; 99284; A9502; G0378; J1650; J2405; J2785; Q0162